=== PATIENT | male | born 1940 | race Caucasian/White ===

== ENCOUNTER → 2020-06-07 | Outpatient (CLI) | payer MEDICARE ==
[~2020-06-07] MED LIST: ATORVASTATIN CA40 MG PO; AZOR 5-40 MG T1 EACH PO; CARVEDILOL3.125 MG PO; FLONASE 0.05% N16 GM; HYDROCHLOROTH12.5 M1 PO; ISOSORBIDE MONO30 MG PO; NITROGLYCERIN0.4 MG SL
== END ==
LOC: ECHO 10:46 → NM 13:00
DX: I25.10 Atherosclerotic heart disease of native coronary artery without angina pectoris (principal); R07.9 Chest pain, unspecified; I08.3 Combined rheumatic disorders of mitral, aortic and tricuspid valves; I27.20 Pulmonary hypertension, unspecified
CPT/HCPCS: ECHO; 78452; 93017; 93306; A9502

== ENCOUNTER → 2020-07-29 | Outpatient (CLI) | payer MEDICARE ==
[2020-07-29 11:38] LABS: HEMOGLOBIN 13.8 gm/dl (14.0-17.5); RED BLOOD COUNT 4.09 M/UL (4.20-5.50); WHITE BLOOD COUNT 4.7 K/UL (4.5-11.0)
[2020-07-29 11:56] LABS: BUN/CREATININE RATIO 20 (0-10)
== END ==
LOC: LAB 10:37
PROVIDERS: Internal Medicine Interventional Cardiology
DX: I11.0 Hypertensive heart disease with heart failure (principal); I50.9 Heart failure, unspecified; R94.39 Abnormal result of other cardiovascular function study; I25.10 Atherosclerotic heart disease of native coronary artery without angina pectoris; E11.9 Type 2 diabetes mellitus without complications
CPT/HCPCS: 36415; 80048; 85025; 85610; 85730

== ENCOUNTER → 2020-08-10 | Outpatient (CLI) | payer MEDICARE | LOC: CATH 08-08 12:00 | DX: I25.118 Atherosclerotic heart disease of native coronary artery with other forms of angina pectoris (principal); I10 Essential (primary) hypertension; E78.5 Hyperlipidemia, unspecified; E11.9 Type 2 diabetes mellitus without complications; Z95.1 Presence of aortocoronary bypass graft; Z88.2 Allergy status to sulfonamides; Z79.899 Other long term (current) drug therapy | CPT/HCPCS: 99152; 99153; C1769; J0360; J1200; J1644; J2250; J3010; J7030; Q9967 ==